=== PATIENT | male | born 1950 | race Caucasian/White ===

== ENCOUNTER → 2023-07-17 13:11 | Outpatient (REF) | payer OTHER, SELFPAY | LOC: RAD 13:11 | PROVIDERS: ATTENDING PHYSICIAN Physician Assistant; FAMILY PHYSICIAN Family Medicine | DX: I73.9 Peripheral vascular disease, unspecified (principal) | CPT/HCPCS: 93922; 93925 ==

== ENCOUNTER → 2023-07-23 15:32 | Outpatient (REF) | payer OTHER, SELFPAY ==
[2023-07-23 16:32] LABS: ALT (SGPT) 11 U/L (0-50); AST (SGOT) 22 U/L (17-59); Albumin 3.8 g/dl (3.5-5.0); Alkaline Phosphatase 157 U/L (38-126); Blood Urea Nitrogen 22 mg/dl (9-20); Calcium 8.6 mg/dl (8.4-10.2); Carbon Dioxide 26 mmol/L (22-30); Chloride 101 mmol/L (98-107); Glucose 389 mg/dl (70-99); HDL Cholesterol 42 mg/dl; LDL Cholesterol, Calculated 16 mg/dl; Magnesium 2.3 mg/dl (1.6-2.3); Phosphorus 4.4 mg/dl (2.5-4.5); Potassium 4.6 mmol/L (3.5-5.1); Sodium 132 mmol/L (135-145); Total Bilirubin 0.6 mg/dl (0.2-1.3); Total Cholesterol 129 mg/dl (50-199); Total Protein 6.6 g/dl (6.3-8.2); Triglyceride 357 mg/dl (10-149); Very Low Density Lipoprotein 71 mg/dl (0-30); eGFR > 60.00
[2023-07-23 17:23] LABS: TSH Reflex To Free T4 4.68 uIU/ml (0.47-4.68)
[2023-07-24 09:29] LABS: Glycohemoglobin (HgbA1c) 10.6 % (4.0-5.6)
== END ==
LOC: REG 15:32
PROVIDERS: ATTENDING PHYSICIAN Family Medicine; OTHER PHYSICIAN Internal Medicine Cardiovascular Disease
DX: I50.32 Chronic diastolic (congestive) heart failure (principal); I11.0 Hypertensive heart disease with heart failure; K76.0 Fatty (change of) liver, not elsewhere classified; E03.9 Hypothyroidism, unspecified; E11.65 Type 2 diabetes mellitus with hyperglycemia; E11.42 Type 2 diabetes mellitus with diabetic polyneuropathy; Z79.4 Long term (current) use of insulin; E78.2 Mixed hyperlipidemia; I10 Essential (primary) hypertension
CPT/HCPCS: 36415; 80053; 80061; 83036; 83735; 84100; 84443

== ENCOUNTER → 2023-08-26 11:59 | Outpatient (REF) | payer OTHER, SELFPAY ==
[2023-08-26 13:49] LABS: ALT (SGPT) 15 U/L (0-50); AST (SGOT) 31 U/L (17-59); Albumin 4.6 g/dl (3.5-5.0); Alkaline Phosphatase 146 U/L (38-126); Blood Urea Nitrogen 43 mg/dl (9-20); Calcium 9.1 mg/dl (8.4-10.2); Carbon Dioxide 31 mmol/L (22-30); Chloride 92 mmol/L (98-107); Glucose 113 mg/dl (70-99); HDL Cholesterol 61 mg/dl; LDL Cholesterol, Calculated 51 mg/dl; Magnesium 2.2 mg/dl (1.6-2.3); Potassium 3.4 mmol/L (3.5-5.1); Sodium 133 mmol/L (135-145); Total Bilirubin 0.7 mg/dl (0.2-1.3); Total Cholesterol 150 mg/dl (50-199); Total Protein 7.7 g/dl (6.3-8.2); Triglyceride 193 mg/dl (10-149); Very Low Density Lipoprotein 38 mg/dl (0-30); eGFR 45.78
[2023-08-26 14:06] LABS: Glycohemoglobin (HgbA1c) 10.4 % (4.0-5.6)
[2023-08-26 14:34] LABS: Free T4 1.43 ng/dl (0.78-2.19)
== END ==
LOC: REG 11:59
PROVIDERS: ATTENDING PHYSICIAN Internal Medicine Cardiovascular Disease; FAMILY PHYSICIAN Family Medicine
DX: I50.33 Acute on chronic diastolic (congestive) heart failure (principal); E11.65 Type 2 diabetes mellitus with hyperglycemia; E11.42 Type 2 diabetes mellitus with diabetic polyneuropathy; Z79.4 Long term (current) use of insulin; E03.9 Hypothyroidism, unspecified; I50.32 Chronic diastolic (congestive) heart failure; I11.0 Hypertensive heart disease with heart failure; K76.0 Fatty (change of) liver, not elsewhere classified; E78.2 Mixed hyperlipidemia; E87.6 Hypokalemia
CPT/HCPCS: 36415; 80053; 80061; 83036; 83735; 84439; 84443

== ENCOUNTER → 2023-09-16 12:00 | Outpatient (REF) | payer MEDICARE, OTHER, SELFPAY ==
--- NOTE | 2023-09-05 13:47 | PN.DIAED02 ---
Referral
DSME Class Series Code: [id number]
Referred For: Diabetes Self-Management Training
PHI Release Authorization Form Signed: Yes
Patient Problems:
Current Active Problems
Problem Status Onset
Type 2 diabetes mellitus with diabetic neuropathy
Demographic
(1) Type 2 diabetes mellitus with diabetic neuropathy
Status: Acute Code(s): E11.40 - Type 2 diabetes mellitus with diabetic neuropathy, unspecified
Patient's primary language-: Andorran
Education: High school/GED
Occupation: Retired
- Social
Primary Care Takers: Other family (lives with ex )
Living Arrangements: Other family (ex )
- Learning Methods
Preferred Method: Reading, Lecture/audio, Hands-on demonstration, Video, Group discussion
Glycemic Control
- Blood Glucose Monitoring Assessment
Date: 09/05/23
Blood glucose monitoring at home: Yes
Monitor Brands: [employer] (El[employer] CGM)
Frequency: Other (new scanning pattern given)
Time: fasting, before breakfast, after breakfast, before lunch, after lunch, before dinner, after dinner, bedtime
- Hemoglobin A1c
Date: 08/26/23
A1C Percentage (%): 10.4
Medical History of Diabetes
Previous Diabetes Education: No
Previous visit with Dietitian: No
Complications/Comorbidity/Specialist: Diabetic Neuropathy, Heart Disease (PR/CVA 2013. Pacemaker/AICD), Poor circulation, Pulmonary disease (COPD)
Measures
- Anthropometrics
Height: 5 ft 8 in
Actual Weight: 249 lb 8 oz
- Blood Pressure / Pulse
Blood pressure: 168/63
- Diabetes Management
Medical Management for Diabetes: Complete physical exam (06/2023), Dilated eye exam (06/2023), Flu Vaccination (03/2023), Pneumonia vaccination (01/18/2019), Other (Covid-19 vaccine 07/12/20,08/26/20,04/19/21)
Self-Care
- Tobacco Usage
Do you now, or have you ever smoked?: Quit in last year (03/2023)
- Alcohol & Drugs Usage
Drinks Alcohol: No
Uses Recreational Drugs: No (suboxone for past use)
- Meals & Dining
Meals & Dining: Patient skips meals: Yes (discussed), Food Intolerance / Allergy: No, Cultural / Gnosticism Dietary Needs: No
Primary Food Manager Respiratory: Self
Primary Racking Machine Operator: Self
Dining Out Frequency: 1-3x per week (2)
- Physical Activity
Physical Limitation: Yes (using single point cane for neuropathy 'less feel like cement blocks')
Patient participates in physical Activity: No ('pain')
- Patient-Self Assessment
Diabetes Knowledge: Poor
Feelings About Diabetes: Fear, Guilt, Overwhelmed / Confused, Sadness / Depression, Anger
General Health: Fair
Importance of Health: Somewhat
Stress Level: Medium
Diabetes Interferes With:: Family/social activities, Work/school, Sports/exercise, Sexual relations, Finances, Travel
Depression Survey Score: 6
Care Plan
- Education Needs
Patient Education Needs: Diabetes disease process, Chronic complications, Acute complications, Medication, Monitoring, Physical activity, Psychosocial Adjustment, Nutritional management, Goal setting & problem solving
Recommended Diabetes Training Program based on assessment: Outpatient Diabetes Education Program
- Plan of Care
Plan of Care:
Gerardo has had T2Dm for approx. 7 yrs, taking Novolog 30 units AC, Lantus 40 units HS and Farxiga 10 mg QD. He is wearing a [employer] 2 CGM. Reviewed proper insulin pen set up, including priming, resetting to zero, dialing dose, injecting at
90 degrees and holding in place for a slow 10 count. He has not been priming. Discussed injecting Novolog in abdomen and went over rotation of injection sites, Lantus to be injected in outer thigh.Discussed best practice for meal time insulin
injection- to check BS, inject Novolog and eat in 15 minutes. He admits to not doing this and sometimes missing doses. Repeat back technique used which did require explaining again best practice for meal time injecting. Suggest to palpate his abd
for any firm areas and if they are present, to avoid injecting this area for about 1 month. He has had recent blood work and information printed for our records. Log sheet given to Gerardo to record his results (FBS, ACHS and 2 hr pp every meal)
asked to call FAZAL Munoz on 09/11/23 with his reading for insulin adjustment. He is aware not to change dosage independently. Goals established including chair exercises, adding protein to meal/snacks and checking BS more frequently. handout
on snack options given.Directions to classroom given as well as phone number for follow up questions.
--- NOTE | 2023-09-05 14:04 | PN.DIAED04 ---
Education Record
- Education Record
Class Attended: Class 1 (pre registration 09/05/23 for outpt DSME classes starting 09/16/23)
DSME Class Series Code: [id number]
Instructor: Registered Nurse (Adela Valadez, RN, BSN, [facility])
Class Curriculum:
Outpatient Diabetes Education Program:
Initial Assessment (45 minutes)
Individualized assessment
Develop personal strategies to promote health and behavior change
Development of diabetes self-management support plan
Class Length (mins): 60
Pre-Program Knowledge: No knowledge
Pre-Test Score (%): 34
Goals
- Goal 1
Being Active: Exercise more often (Provided with handout on chair exercises)
Goals To Be Evaluated: Exercise more often
- Goal 2
Healthy Eating: Make better food choices
Goals To Be Evaluated: Make better food choices
- Goal 3
Monitoring: Record blood glucose levels in log book (Scan FBS, ACHS and 2 hr pp every meal, record on log sheet provided.)
Goals To Be Evaluated: Record BG levels
--- NOTE | 2023-09-17 09:41 | PN.DIAED04 ---
Education Record
- Education Record
Class Attended: Class 1
DSME Class Series Code: [id number]
Instructor: Nurse Practitioner (LEONARDO Murphy)
Class Length (mins): 120
Post-Class 1 Test Score (%): 75
--- NOTE | 2023-09-17 09:42 | PN.DIAED14 ---
This is to notify you that your patient with diabetes, JIM BRANCH ( 1950), has enrolled in our diabetes self-management classes that are being held at [facility].
These classes will include an introduction to diabetes, diet, medication, exercise and prevention of complications. At the end of our class series, you will receive a report of your patient's participation and progress for your records.
Please contact me at the Diabetes Center, , if there is any particular information regarding your patient that might be helpful to me.
Sincerely,
--- NOTE | 2023-09-19 14:53 | PN.DIAED06 ---
Meal Plans - Regular
- Meal Plan
Diabetic Meal Plan Name: 2000 calories
Breakfast - Total Carbohydrate (grams): 45
Breakfast - Starch Carbohydrate: 0
Breakfast - Fruit Carbohydrate: 0
Breakfast - Milk Carbohydrate: 0
Breakfast - Nonstarchy Vegetables: Yes
Breakfast - Meat/Protein: 1
Breakfast - Fat: 2
Morning Snack - Total Carbohydrate (grams): 30
Morning Snack - Starch Carbohydrate: 0
Morning Snack - Fruit Carbohydrate: 0
Morning Snack - Milk Carbohydrate: 0
Morning Snack - Nonstarchy Vegetables: Yes
Morning Snack - Meat/Protein: 0.5
Morning Snack - Fat: 0
Lunch - Total Carbohydrate (grams): 45
Lunch - Starch Carbohydrate: 0
Lunch - Fruit Carbohydrate: 0
Lunch - Milk Carbohydrate: 0
Lunch - Nonstarchy Vegetables: Yes
Lunch - Meat/Protein: 3
Lunch - Fat: 1
Afternoon Snack - Total Carbohydrate (grams): 30
Afternoon Snack - Starch Carbohydrate: 0
Afternoon Snack - Fruit Carbohydrate: 0
Afternoon Snack - Milk Carbohydrate: 0
Afternoon Snack - Nonstarchy Vegetables: Yes
Afternoon Snack - Meat/Protein: 0.5
Afternoon Snack - Fat: 0
Dinner - Total Carbohydrate (grams): 45
Dinner - Starch Carbohydrate: 0
Dinner - Fruit Carbohydrate: 0
Dinner - Milk Carbohydrate: 0
Dinner - Nonstarchy Vegetables: Yes
Dinner - Meat/Protein: 4
Dinner - Fat: 2
Evening Snack - Total Carbohydrate (grams): 15
Evening Snack - Starch Carbohydrate: 0
Evening Snack - Fruit Carbohydrate: 0
Evening Snack - Milk Carbohydrate: 0
Evening Snack - Nonstarchy Vegetables: Yes
Evening Snack - Meat/Protein: 0
Evening Snack - Fat: 0
== END ==
LOC: DES 12:00
PROVIDERS: ATTENDING PHYSICIAN Family Medicine
DX: E11.40 Type 2 diabetes mellitus with diabetic neuropathy, unspecified (principal)
CPT/HCPCS: 99078

== ENCOUNTER → 2023-09-30 12:00 | Outpatient (REF) | payer MEDICARE, OTHER, SELFPAY ==
--- NOTE | 2023-10-02 07:47 | PN.DIAED04 ---
Education Record
- Education Record
Class Attended: Class 3
DSME Class Series Code: [id number]
Instructor: Registered Dietitian (Donna Armstrong, RD, LDN, CDE)
Class Length (mins): 120
Post-Class 2 & 3 Test Score (%): 70
== END ==
LOC: DES 12:00
PROVIDERS: ATTENDING PHYSICIAN Family Medicine
DX: E11.40 Type 2 diabetes mellitus with diabetic neuropathy, unspecified (principal)
CPT/HCPCS: 99078

== ENCOUNTER 2023-10-20 08:37 | Emergency (ER) | payer MEDICARE, OTHER, SELFPAY ==
[2023-10-20 08:51] VITALS: BP 137/104
--- NOTE | 2023-10-20 10:09 | ED.GENMED ---
History of Present Illness
General
Chief Complaint: Skin Problem
Source: patient
Time Seen by Provider: 10/20/23 09:44
Travel History
Have you had any contact with someone who has COVID-19?: No
Do you have any symptoms of coronavirus? Fever > 100 degrees, chills, cough, shortness of breath, sore throat, loss of taste or smell, muscle aches, or headache?: No
History of Present Illness
History of Present Illness:
73-year-old male with past medical history of asthma/COPD, hypertension, hyperlipidemia, valvular dysfunction, CHF, insulin-dependent diabetes presents to the emergency department for evaluation of infection to the left shoulder that he believes has
been ongoing for about 1 week stating the pain travels along the lateral aspect of his deltoid. He notes an associated lump at the proximalmost portion of this and also states he has similar to bumps on his upper back that have been there for a few
years but these are not causing him any issues today. He denies any fevers, chills, rigors or any other symptoms. Has not attempted any medications for relief. No other concerns at this time.
Past History
Past History
ED Past Medical History: Asthma, CAD, CHF, COPD, CVA, HTN, Hypercholesterolemia, NIDDM, ME, Hypothyroidism and Other (Hep A, B, and C, Cellulitis, )
ED Past Surgical History: Cardiac (Defibulator), Orthopedic (rotator cuff repair Right) and Other (Hernia repair X 4)
Social History
Tobacco: Former smoker (1ppd X >40 yrs, States that he stopped 3 days ago as of 04/03/23)
Alcohol: Occasional
Drug: Former user and IVDA
Personal: Single
Living: alone
Employment: Employed
Family History
Family History: Diabetes
Review of Systems
Review of Systems
All Other Systems: ROS reviewed and negative except as documented in HPI and ROS
Phy Exam
Physical Exam
Physical Exam:
GENERAL: Alert , in no apparent distress
EYE: conjunctiva clear
Head: Normocephalic atraumatic
NECK: Supple,
ENT: mmm.
LUNGS: no acute respiratory distress
NEUROLOGICAL: Alert and oriented
SKIN: Warm and dry, infected sebaceous cyst to the left lateral deltoid with surrounding erythema and induration distal to the cyst. The total area of erythema measures approximately 2-1/2 cm. Mildly tender and warm to palpation. There are 2
separate smaller sebaceous cysts within the mid back at the level of the distal cervical spine and mid thoracic spine but no overlying skin or cellulitic changes.
MUSCULOSKELETAL: well perfused.
PSYCH: Normal and appropriate interaction.
Scores
Heart Failure Risk
Heart Failure Risk Score: Not Applicable
Heart Score for Chest Pain Patients
STEMI patient?: Not applicable
Withdrawal Assessment of Alcohol
Withdrawal Assessment Completed?: Not applicable
Course
Vital Signs
Initial and Last Documented VS:
Initial Vital Signs
Temp Pulse Resp BP Pulse Ox
97.8 F 65 18 137/104 97
10/20/23 08:51 10/20/23 08:51 10/20/23 08:51 10/20/23 08:51 10/20/23 08:51
Last Documented Vital Signs
Temp Pulse Resp BP Pulse Ox
97.8 F 65 18 137/104 97
10/20/23 08:51 10/20/23 08:51 10/20/23 08:51 10/20/23 08:51 10/20/23 08:51
Procedures
Incision/Drainage/Joint Aspiration
Left Upper Arm:
Anethesia: 1% Lidocaine
Preparation: cleaned with Hibiclens
Type of procedure: incise
Nature of site: cyst
How much fluid was obtained?: none
Treatment: antibiotics started
Additional information:
Moderate amount of sebaceous material and sebaceous capsule were removed
MDM/Problems Addressed
Differential Diagnosis Includes:
Cellulitis, abscess, infected cyst
MDM/Problems Addressed:
73-year-old male presenting emergency department for evaluation of what he believes to be an abscess to the left upper arm. Based off exam and the amount of time the lump has been there I do suspect this is more likely an infected cyst. Please see
procedure note above. There was a moderate amount of sebaceous material removed and sebaceous cyst capsule was also removed. Will place patient on Keflex given the surrounding erythema. I provided him with information for drawing machine operator to
follow-up with. Motrin/Tylenol as needed for pain. Patient is otherwise stable for discharge home.
*Pulse Oximetry
Patient hypoxic: no
*Critical Care Note
Total Time (30-74mins, 75-104mins- exclusive of procedures): Not Applicable
Data Reviewed
Review of Other/Old Records Reveals: Labs and Records
Source: patient
ED Attending Note
-
Portions of this chart may have been created with voice recognition software.� Occasional wrong word or��sound alike� substitutions may have occurred due to the inherent limitations of voice recognition software.
Discharge Plan
Departure
Patient Disposition: Home (Routine Discharge)
Date of Disposition: 10/20/23
Time of Disposition: 10:09
Patient with high blood pressure during this ER visit?: Yes
Discharge Problem:
Sebaceous cyst, Cellulitis of left upper arm
Instructions: Cellulitis (Skin Infection), Adult (DC)
Prescriptions:
New
cephalexin 500 mg tablet
500 mg PO BID 10 Days Qty: 20 0RF
No Action
aspirin 81 MG tablet,delayed release (DR/EC)
81 mg PO DAILY
levothyroxine 50 MCG tablet
50 mcg PO DAILY AT 0700
buprenorphine-naloxone [Suboxone] 1 EACH film
3 film sublingual DAILY
Patient Comments:
04/03/2023: last filled 03/14/23, 90 film for 30 days from [facility]
albuterol sulfate 1 PUFF HFA aerosol inhaler
2 puff inhalation R Q4HPRN PRN (Reason: sob)
clonidine HCl 0.3 MG tablet
0.9 mg PO HS
insulin glargine [Lantus Solostar U-100 Insulin] 300 UNITS/3 ML insulin pen
40 units SC HS
insulin aspart U-100 [Novolog FlexPen U-100 Insulin] 300 UNITS/3 ML insulin pen
30 units SC MEALS
tamsulosin 0.4 MG capsule
0.4 mg PO DAILY
verapamil 360 MG capsule,ext rel. pellets 24 hr
360 mg PO DAILY
furosemide 80 mg Tablet
80 mg PO DAILY
nicotine 21 mg/24 hr Patch 24 Hour
1 patch TRANSDERMAL DAILY PRN (Reason: smoking cessation )
atorvastatin 40 MG tablet
40 mg PO QPM
Farxiga 10 MG tablet
10 mg PO DAILY
prednisone 10 mg Tablet
See Rx Instructions .ROUTE .COMPLEX Qty: 18 0RF
Rx Instructions:
Take By Mouth:
30 mg daily x3 days,
20 mg daily x3 days, 10 mg daily x3 days.
Referrals:
Gayathri Becker DO [Active] - (Dermatology)
Interventions
Interventions:
*Risk Screen - Suicide Last Done: 10/20/23 10:29
*General Assessment Last Done: 10/20/23 08:51
*Neglect/Abuse Screening Last Done: 10/20/23 10:29
ED- Fall Risk Assessment Last Done: 10/20/23 10:29
*ED COVID-19 Vaccine History Last Done: 10/20/23 08:51
*Nursing Disposition Last Done: 10/20/23 10:29
ED-Skin Assessment Last Done: 10/20/23 10:29
Discharge Date and Time
Discharge Date/Time: 10/20/23 10:29
Print Language: AUSTRALIAN
== END 2023-10-20 10:29 | disposition home or self-care (01) ==
LOC: EMR 08:37
PROVIDERS: EMERGENCY PHYSICIAN Emergency Medicine; FAMILY PHYSICIAN Family Medicine
DX: L72.3 Sebaceous cyst (principal); L03.114 Cellulitis of left upper limb; J44.89 Other specified chronic obstructive pulmonary disease; I11.0 Hypertensive heart disease with heart failure; I50.9 Heart failure, unspecified; E78.00 Pure hypercholesterolemia, unspecified; E11.9 Type 2 diabetes mellitus without complications; E03.9 Hypothyroidism, unspecified; I25.10 Atherosclerotic heart disease of native coronary artery without angina pectoris; Z83.3 Family history of diabetes mellitus; Z86.73 Personal history of transient ischemic attack (TIA), and cerebral infarction without residual deficits; Z87.891 Personal history of nicotine dependence; Z98.890 Other specified postprocedural states
CPT/HCPCS: 99282; 10060

== ENCOUNTER → 2023-12-16 13:13 | Outpatient (REF) | payer MEDICARE, OTHER, SELFPAY ==
[2023-12-16 15:31] LABS: ALT (SGPT) 15 U/L (0-50); AST (SGOT) 28 U/L (17-59); Albumin 4.3 g/dl (3.5-5.0); Alkaline Phosphatase 146 U/L (38-126); Blood Urea Nitrogen 18 mg/dl (9-20); Carbon Dioxide 24 mmol/L (22-30); Chloride 101 mmol/L (98-107); Glucose 241 mg/dl (70-99); HDL Cholesterol 50 mg/dl; LDL Cholesterol, Calculated 53 mg/dl; Potassium 4.7 mmol/L (3.5-5.1); Sodium 134 mmol/L (135-145); Total Bilirubin 0.6 mg/dl (0.2-1.3); Total Cholesterol 133 mg/dl (50-199); Total Protein 6.9 g/dl (6.3-8.2); Triglyceride 150 mg/dl (10-149); Very Low Density Lipoprotein 30 mg/dl (0-30); eGFR > 60.00
[2023-12-16 16:02] LABS: TSH Reflex To Free T4 3.93 uIU/ml (0.47-4.68)
[2023-12-16 17:24] LABS: % Basophils 0.5 % (0-2); % Eosinophils 2.2 % (0-6); % Immature Granulocytes 0.3 % (0-0.5); % Lymphocytes 30.7 % (20.5-51.1); % Monocytes 6.6 % (1.7-9.3); % Neutrophils 59.7 % (42.2-75.2); Absolute Eosinophils 0.2 10^3/uL (0-0.7); Absolute Lymphocytes 2.7 10^3/uL (1.2-3.4); Absolute Monocytes 0.6 10^3/uL (0.1-0.6); Absolute Neutrophils 5.2 10^3/uL (1.4-6.5); Hematocrit 39.4 % (39.0-52.0); Hemoglobin 13.2 g/dL (13.0-18.0); Mean Corp Hgb Conc. 33.5 g/dL (33.0-37.0); Mean Corpuscular Hgb 27.7 pg (27.0-31.0); Mean Corpuscular Volume 82.6 fL (80.0-94.0); Mean Platelet Volume 10.9 fL (7.4-10.4); Nucleated Red Blood Cells % 0 % (-); Platelet Count 221 10^3/uL (130-400); Red Blood Cell Count 4.77 10^6/uL (4.70-6.10); White Blood Cell Count 8.8 10^3/uL (4.8-10.8)
[2023-12-17 09:41] LABS: Glycohemoglobin (HgbA1c) 10.4 % (4.0-5.6)
== END ==
LOC: REG 13:13
PROVIDERS: ATTENDING PHYSICIAN Internal Medicine Cardiovascular Disease; FAMILY PHYSICIAN Family Medicine
DX: E11.42 Type 2 diabetes mellitus with diabetic polyneuropathy (principal); I50.33 Acute on chronic diastolic (congestive) heart failure; I10 Essential (primary) hypertension; E78.2 Mixed hyperlipidemia; Z72.0 Tobacco use; E11.9 Type 2 diabetes mellitus without complications; Z79.4 Long term (current) use of insulin; I42.2 Other hypertrophic cardiomyopathy; Z86.73 Personal history of transient ischemic attack (TIA), and cerebral infarction without residual deficits; Z95.810 Presence of automatic (implantable) cardiac defibrillator; I47.20 Ventricular tachycardia, unspecified; I44.1 Atrioventricular block, second degree; I73.9 Peripheral vascular disease, unspecified; I87.2 Venous insufficiency (chronic) (peripheral); I35.0 Nonrheumatic aortic (valve) stenosis
CPT/HCPCS: 36415; 80053; 80061; 83036; 84443; 85025

== ENCOUNTER → 2023-12-20 16:04 | Outpatient (REF) | payer MEDICARE, OTHER, SELFPAY | LOC: HWRCS 16:04 | PROVIDERS: ATTENDING PHYSICIAN Internal Medicine Cardiovascular Disease; FAMILY PHYSICIAN Family Medicine | DX: I35.0 Nonrheumatic aortic (valve) stenosis (principal) | CPT/HCPCS: 93306 ==

== ENCOUNTER → 2024-01-10 13:05 | Outpatient (REF) | payer MEDICARE, OTHER, SELFPAY | LOC: RAD 13:05 | PROVIDERS: ATTENDING PHYSICIAN Registered Nurse; FAMILY PHYSICIAN Family Medicine | DX: I73.9 Peripheral vascular disease, unspecified (principal) | CPT/HCPCS: 93922; 93925 ==

== ENCOUNTER → 2024-08-07 11:09 | Outpatient (REF) | payer MEDICARE, OTHER, SELFPAY ==
[2024-08-07 16:01] LABS: ALT (SGPT) 14 U/L (0-50); AST (SGOT) 23 U/L (17-59); Albumin 3.9 g/dl (3.5-5.0); Alkaline Phosphatase 103 U/L (38-126); Blood Urea Nitrogen 26 mg/dl (9-20); Calcium 9.2 mg/dl (8.4-10.2); Carbon Dioxide 27 mmol/L (22-30); Chloride 99 mmol/L (98-107); Glucose 144 mg/dl (70-99); HDL Cholesterol 58 mg/dl; LDL Cholesterol, Calculated 48 mg/dl; Magnesium 2.2 mg/dl (1.6-2.3); Potassium 4.1 mmol/L (3.5-5.1); Sodium 134 mmol/L (135-145); Total Bilirubin 0.7 mg/dl (0.2-1.3); Total Cholesterol 134 mg/dl (50-199); Total Protein 6.7 g/dl (6.3-8.2); Triglyceride 141 mg/dl (10-149); Very Low Density Lipoprotein 28 mg/dl (0-30); eGFR 58.37
[2024-08-07 16:32] LABS: TSH Reflex To Free T4 4.12 uIU/ml (0.47-4.68)
[2024-08-09 22:13] LABS: PSA Total 0.2 ng/mL (0.0-4.0)
== END ==
LOC: HWRAD 11:09
PROVIDERS: ATTENDING PHYSICIAN Internal Medicine Critical Care Medicine; FAMILY PHYSICIAN Family Medicine; OTHER PHYSICIAN Surgery Vascular Surgery; REFERRING PHYSICIAN Internal Medicine Cardiovascular Disease
DX: Z87.891 Personal history of nicotine dependence (principal); R79.9 Abnormal finding of blood chemistry, unspecified; Z01.89 Encounter for other specified special examinations; Z79.899 Other long term (current) drug therapy; N40.1 Benign prostatic hyperplasia with lower urinary tract symptoms
CPT/HCPCS: 36415; 71271; 80053; 80061; 83735; 84153; 84154; 84443